=== PATIENT | female | born 1985 | race American Indian/Alaskan Native ===

== ENCOUNTER 2016-07-29 13:14 | Emergency (ER) | payer SELFPAY ==
[2016-07-29 13:42] VITALS: BP 132/80
--- NOTE | 2016-07-29 17:07 | Emergency Department Report ---
Upper Extremity - HPI Chief Complaint: Extremity Injury, Upper Stated Complaint: RT HAND PAIN SWELLING/KNEE Time Seen by Provider: 07/29/16 16:27 Upper Extremity: Right Hand (right thumb and web in between first and second digits), Right Thumb, Right Index Finger Occurred When: >5 Days (5 months) Severity: moderate Symptoms: Yes Pain with Movement, Yes Limited Range of Movement, Yes Numbness, Yes Weakness, Yes Swelling, No Deformity, No Bruising/Ecchymosis, No Laceration or Abrasion Other History: Patient comes into the ER today with complaints of right hand pain since February 2016. Patient states that she went to put her hand on her hip and her thumb overextended. Since that time it has continued to bother her but it has gotten a lot worse in the past week and a half. Patient has not seen any other provider for this injury. Patient does note that it seems to go numb in her thumb as well as first and second fingers from time to time. Patient states it feels swollen between her thumb and second finger. Patient also having complaints of left knee pain for the past month. Patient denies any injury to her knee but states that it feels like it wants to give out frequently and is worse when putting stress on the knee such as getting in and out of a car or going up and down stairs. ED Review of Systems ROS: Stated complaint: RT HAND PAIN SWELLING/KNEE Other details as noted in HPI Constitutional: denies: chills, fever Eyes: denies: eye pain, eye discharge, vision change ENT: denies: ear pain, throat pain Respiratory: denies: cough, shortness of breath, wheezing Cardiovascular: denies: chest pain, palpitations Endocrine: no symptoms reported Gastrointestinal: denies: abdominal pain, nausea, diarrhea Genitourinary: denies: urgency, dysuria, discharge Musculoskeletal: joint swelling, arthralgia, other (right hand pain, left knee pain). denies: back pain Skin: denies: rash, lesions Neurological: denies: headache, weakness, paresthesias Psychiatric: denies: anxiety, depression Hematological/Lymphatic: denies: easy bleeding, easy bruising ED Past Medical Hx - Past Medical History Previous Medical History?: No - Surgical History Additional Surgical History: TUBAL LIGATION - Social History Smoking Status: Current Every Day Smoker Substance Use Type: Alcohol - Medications Home Medications: Home Medications Medication Instructions Recorded Confirmed Last Taken Type Naproxen [Naprosyn TAB] 500 mg PO BID #20 tablet 07/29/16 Unknown Rx traMADol [Ultram] 50 mg PO Q4HR PRN #30 tablet 07/29/16 Unknown Rx Upper Extremity Exam - Exam General: Vital signs noted. No distress. Alert and acting appropriately. Left knee tenderness to joint line anteriorly on medial and lateral aspects. Pain worsened with Joanna's stress testing on left knee. No joint laxity or instability noted. No obvious swelling, redness, warmth noted on exam. Head and Torso: No HEENT Abnormality, No Neck Tenderness, No Chest/Lungs Abnormality, No Abdominal Tenderness, No Back Tenderness Shoulder Exam: Yes Normal Range of Motion in Shoulder, No Shoulder Tenderness, No Clavicle Tenderness, No Shoulder Deformity, No AC Joint Tenderness Arm Exam: No Arm/Humerus Tenderness, No Arm Deformity Elbow: No Elbow Tenderness, No Normal Range of Motion in Elbow, No Elbow Deformity Forearm: No Forearm Tenderness, No Forearm Deformity, No Pain with Pronation, No Pain with Supination Wrist: Yes Normal ROM in Wrist, No Wrist Tenderness, No Wrist Deformity, No Snuffbox Tenderness, No Pain with Axial Thumb Compression Hand: Yes Hand Tenderness (tenderness noted to right thumb and webbing area between the thumb and second digit. Negative Tinel's and Phalen's testing over median nerve), Yes Digit Tenderness, No Hand Deformity, No Normal ROM in Digit(s ), No Digit(s) Deformity, No Tendon Dysfunction CMS Exam: No Broken Skin, No Normal Distal Pulses, No Normal Capillary Refill, No Normal Distal Sensation ED Course Vital Signs 07/29/16 13:36 Temperature 98.9 F Pulse Rate 88 Respiratory 18 Rate Blood Pressure 132/80 O2 Sat by Pulse 100 Oximetry ED Medical Decision Making - Radiology Data Radiology results: image reviewed interpreted by me: No acute bone pathology noted. Slight medial joint space narrowing in comparison to the lateral. - Medical Decision Making Patient is nontoxic and hemodynamically stable. No emergent condition found on examination today. From the history of injury and exam findings of right hand I believe patient has damaged some soft tissue between her right thumb and second finger. Patient placed in thumb spica Velcro splint and I have encouraged her to wear it consistently over the next 3-4 weeks. I'll give patient referral to orthopedics for further evaluation if the symptoms fail to resolve or worsen. X-ray of the left knee reviewed and discussed the patient room. No bone pathology noted. Examination and history I have concern for potential meniscus injury. Patient is to follow-up with orthopedics for evaluation of knee as well. Patient placed in left knee immobilizer in the meantime. She is stable for discharge and and is agreement with treatment plan. Critical care attestation.: If time is entered above; I have spent that time in minutes in the direct care of this critically ill patient, excluding procedure time. ED Disposition Clinical Impression: Right hand pain, Left knee pain Disposition: DISCHARGED TO HOME OR SELFCARE Is pt being admited?: No Does the pt Need Aspirin: No Condition: Stable Instructions: Knee Pain (ED), Tendinitis (ED), Chondroitin Sulfate/Glucosamine Hydrochloride (By mouth) Prescriptions: Naproxen [Naprosyn TAB] 500 mg PO BID #20 tablet traMADol [Ultram] 50 mg PO Q4HR PRN #30 tablet PRN Reason: Pain Referrals: PRIMARY CARE, [Primary Care Provider] - 3-5 Days RUSH YUSUF MD [Staff Physician] - 3-5 Days Time of Disposition: 17:48
--- NOTE | 2016-07-30 07:41 | XRay Report ---
Left knee 2 views: History: Pain. Findings: No bony or articular abnormality. No fracture dislocation or soft tissue calcification. Impression: Essentially negative left knee.
== END 2016-07-29 18:01 | disposition home or self-care (01) ==
LOC: ED 13:14
DX: M79.641 Pain in right hand (principal); M25.562 Pain in left knee; F17.200 Nicotine dependence, unspecified, uncomplicated; Z98.51 Tubal ligation status

== ENCOUNTER 2016-09-24 17:51 | Emergency (ER) | payer SELFPAY ==
[2016-09-24 19:15] LABS: Basophils % (Auto) 0.4 % (0.0-1.8); Eosinophils % (Auto) 2.1 % (0.0-4.3); Hematocrit 44.1 % (30.3-42.9); Hemoglobin 14.1 gm/dl (10.1-14.3); Mean Corpuscular HGB Conc 32 % (30-34); Mean Corpuscular Hemoglobin 27 pg (28-32); Mean Corpuscular Volume 85 fl (79-97); Platelet Count 356 K/mm3 (140-440); Red Blood Count 5.21 M/mm3 (3.65-5.03); Red Cell Distribution Width 18.2 % (13.2-15.2); White Blood Count 7.1 K/mm3 (4.5-11.0)
[2016-09-24 19:26] LABS: INR 1.04 (0.87-1.13); Partial Thromboplastin Time 28.6 Sec. (24.2-36.6)
[2016-09-24 19:43] LABS: Anion Gap 17 mmol/L; BUN/Creatinine Ratio 11.25; Blood Urea Nitrogen 9 mg/dL (7-17); Calcium 8.7 mg/dL (8.4-10.2); Carbon Dioxide 21 mmol/L (22-30); Glucose 89 mg/dL (65-100); Potassium 4.4 mmol/L (3.6-5.0); Sodium 140 mmol/L (137-145)
[2016-09-25] MEDS ORDERED: TYLENOL PO ONE (01:10)
[2016-09-25] MEDS ORDERED: TORADOL IV ONE (03:44)
[2016-09-25] MEDS ORDERED: MORPHINE IV ONE (03:44)
[2016-09-25] MEDS ORDERED: ZOFRAN IV ONE (03:44)
[2016-09-25] MEDS ORDERED: NACL ONE (04:48)
--- NOTE | 2016-09-25 05:10 | Emergency Department Report ---
ED Chest Pain HPI - General Chief Complaint: Chest Pain Stated Complaint: CHEST PAIN/BACK/ARM PAIN Time Seen by Provider: 09/25/16 03:28 Source: patient Mode of arrival: Ambulatory Limitations: No Limitations - History of Present Illness Initial Comments: 31 year old past medical history except tubal ligation presents to the hospital complaints of chest pain, left arm pain, left knee pain and swelling, and right wrist pain and swelling. Symptoms started 6 days ago. Left upper chest wall pain described as sharp, intermittent, worse with movement, coughing, and deep inspiration. Patient also complaining of pain to left shoulder to palpation and movement. Patient of painful left knee pain with swelling that has improved since arrival. Patient also had swelling to right wrist that has also improved. Patient denies history of arthritis or rheumatoid disorder. She does not have a primary care doctor. She denies shortness of breath. Severity scale (0 -10): 10 - Related Data Previous Rx's Medication Instructions Recorded Last Taken Type HYDROcodone/APAP 5-325 [[place] 1 each PO Q6HR PRN #20 tablet 09/25/16 Unknown Rx 5/325] Naproxen [Naprosyn] 500 mg PO BID PRN #30 tablet 09/25/16 Unknown Rx Prednisone [predniSONE 10 mg 10 mg PO .TAPER #1 tab.ds.pk 09/25/16 Unknown Rx (6-Day Pack, 21 Tabs)] Allergies Allergy/AdvReac Type Severity Reaction Status Date / Time No Known Allergies Allergy Unverified 07/29/16 13:42 Heart Score - HEART Score History: Slightly suspicious EKG: Normal Age: < 45 Risk factors: No known risk factors Troponin: < normal limit HEART Score: 0 ED Review of Systems ROS: Stated complaint: CHEST PAIN/BACK/ARM PAIN Other details as noted in HPI Comment: All other systems reviewed and negative Other: Constitutional: No fevers chills or weight loss Eyes: No eye pain visual changes or discharge ENT: No ear pain or throat pain Neck: Denies pain Respiratory: Denies cough wheezing Cardiovascular: Denies palpitations, syncope Endocrine: Denies excessive sweating, intolerance to cold, increased thirst GI: Denies abdominal pain, nausea, vomiting, diarrhea, constipation, melena hematochezia : Denies dysuria, urinary frequency, or urgency Musculoskeletal: as per hpi Skin: Denies rash, lesions, erythema Neurologic: Denies headache, numbness, weakness Psychiatric: Denies suicidal ideation, hallucinations Hematological/lymphatic: Denies easy bruising, lymphadenopathy ED Past Medical Hx - Past Medical History Previous Medical History?: No - Surgical History Additional Surgical History: TUBAL LIGATION - Social History Smoking Status: Current Every Day Smoker Substance Use Type: Alcohol - Medications Home Medications: Home Medications Medication Instructions Recorded Confirmed Last Taken Type HYDROcodone/APAP 5-325 [[place] 1 each PO Q6HR PRN #20 tablet 09/25/16 Unknown Rx 5/325] Naproxen [Naprosyn] 500 mg PO BID PRN #30 tablet 09/25/16 Unknown Rx Prednisone [predniSONE 10 mg 10 mg PO .TAPER #1 tab.ds.pk 09/25/16 Unknown Rx (6-Day Pack, 21 Tabs)] ED Physical Exam - General Limitations: No Limitations - Other Other exam information: General: No limitations, patient is alert in no acute distress Head exam: Atraumatic, normocephalic Eyes exam: Normal appearance, pupils equal reactive to light, extraocular movements intact ENT: Moist mucous membrane, normal oropharynx Neck exam: Normal inspection, full range of motion, no meningismus nontender Respiratory exam: Clear to auscultation bilateral, no wheezes, rales, crackles Cardiovascular: Normal rate and rhythm, normal heart sounds, reproducible chest wall tenderness at one specific area just to the left of the sternal and at the upper chest wall Abdomen: Soft, nondistended, and nontender, with normal bowel sounds, no rebound, or guarding Extremity: Full range of motion of all extremities. Patient has tenderness to left shoulder and pain with movement. Patient also has some mild tenderness pain with movement of left knee. Patient showed me a camera photo for previous left knee swelling and right wrist edema to have both improved. No erythema or warmth to these extremities. No calf edema Back: Normal Inspection, full range of motion, no tenderness Neurologic: Alert, oriented x3, cranial nerves intact, no motor or sensory deficit Psychiatric: normal affect, normal mood Skin: Warm, dry, intactnimal physical exam ED Course Vital Signs 09/24/16 09/25/16 09/25/16 18:08 00:53 03:21 Temperature 98.6 F 96.8 F L Pulse Rate 90 64 60 Respiratory 18 16 Rate Blood Pressure 119/79 144/98 O2 Sat by Pulse 100 98 100 Oximetry 09/25/16 09/25/16 09/25/16 03:30 04:00 04:30 Temperature Pulse Rate 59 L 61 67 Respiratory 26 H 25 H 12 Rate Blood Pressure 126/80 122/79 132/85 O2 Sat by Pulse 100 100 99 Oximetry 09/25/16 05:00 Temperature Pulse Rate 65 Respiratory 22 Rate Blood Pressure 122/74 O2 Sat by Pulse 99 Oximetry - Reevaluation(s) Reevaluation #1: 09/25/16 05:46 Pt treated with toradal, morphine, and decadron. SURY score - Sury Score Age > 65: (0) No Aspirin use within the Past 7 Days: (0) No 3 or more CAD Risk Factors: (0) No 2 or more Angina events in past 24 hrs: (0) No Known CAD with more than 50% Stenosis: (0) No Elevated Cardiac Markers: (0) No ST Deviation Greater than 0.5mm: (0) No SURY Score: 0 ED Medical Decision Making - Lab Data Result diagrams: 09/24/16 18:41 09/24/16 18:41 Lab Results 09/24/16 09/24/16 09/24/16 Range/Units 18:41 18:41 18:41 WBC 7.1 (4.5-11.0) K/mm3 RBC 5.21 H (3.65-5.03) M/mm3 Hgb 14.1 (10.1-14.3) gm/dl Hct 44.1 H (30.3-42.9) % MCV 85 (79-97) fl MCH 27 L (28-32) pg MCHC 32 (30-34) % RDW 18.2 H (13.2-15.2) % Plt Count 356 (140-440) K/mm3 Lymph % (Auto) 35.5 H (13.4-35.0) % Mcdonough % (Auto) 7.8 H (0.0-7.3) % Eos % (Auto) 2.1 (0.0-4.3) % Baso % (Auto) 0.4 (0.0-1.8) % Lymph # 2.5 (1.2-5.4) K/mm3 Mcdonough # 0.5 (0.0-0.8) K/mm3 Eos # 0.1 (0.0-0.4) K/mm3 Baso # 0.0 (0.0-0.1) K/mm3 Seg Neutrophils % 54.2 (40.0-70.0) % Seg Neutrophils # 3.8 (1.8-7.7) K/mm3 PT 13.5 (12.2-14.9) Sec. INR 1.04 (0.87-1.13) APTT 28.6 (24.2-36.6) Sec. D-Dimer (0-234) ng/mlDDU Sodium 140 (137-145) mmol/L Potassium 4.4 (3.6-5.0) mmol/L Chloride 106.0 (98-107) mmol/L Carbon Dioxide 21 L (22-30) mmol/L Anion Gap 17 mmol/L BUN 9 (7-17) mg/dL Creatinine 0.8 (0.7-1.2) mg/dL Estimated GFR > 60 ml/min BUN/Creatinine Ratio 11.25 % Glucose 89 (65-100) mg/dL Calcium 8.7 (8.4-10.2) mg/dL Troponin T < 0.010 (0.00-0.029) ng/mL 09/25/16 09/25/16 Range/Units 01:13 03:45 WBC (4.5-11.0) K/mm3 RBC (3.65-5.03) M/mm3 Hgb (10.1-14.3) gm/dl Hct (30.3-42.9) % MCV (79-97) fl MCH (28-32) pg MCHC (30-34) % RDW (13.2-15.2) % Plt Count (140-440) K/mm3 Lymph % (Auto) (13.4-35.0) % Mcdonough % (Auto) (0.0-7.3) % Eos % (Auto) (0.0-4.3) % Baso % (Auto) (0.0-1.8) % Lymph # (1.2-5.4) K/mm3 Mcdonough # (0.0-0.8) K/mm3 Eos # (0.0-0.4) K/mm3 Baso # (0.0-0.1) K/mm3 Seg Neutrophils % (40.0-70.0) % Seg Neutrophils # (1.8-7.7) K/mm3 PT (12.2-14.9) Sec. INR (0.87-1.13) APTT (24.2-36.6) Sec. D-Dimer 700.85 H (0-234) ng/mlDDU Sodium (137-145) mmol/L Potassium (3.6-5.0) mmol/L Chloride (98-107) mmol/L Carbon Dioxide (22-30) mmol/L Anion Gap mmol/L BUN (7-17) mg/dL Creatinine (0.7-1.2) mg/dL Estimated GFR ml/min BUN/Creatinine Ratio % Glucose (65-100) mg/dL Calcium (8.4-10.2) mg/dL Troponin T < 0.010 (0.00-0.029) ng/mL - EKG Data -: EKG Interpreted by Me (sinus rhythm rate [address] elevation [place]. Possible biatrial enlargement) - EKG Data When compared to previous EKG there are: previous EKG unavailable 09/25/16 05:48 Repeat EKG in the ED on change - Radiology Data Radiology results: report reviewed (CT angiogram: No PE, negative), image reviewed (chest x-ray: No acute findings) - Medical Decision Making Patient has various musculoskeletal areas of pain and intermittent joint swelling and pain. I suspicious for an arthritis condition and patient thinks patient may benefit from additional outpatient workup due to her arthralgias. She will be treated with anti-inflammatory, narcotics, and steroids and follow- up will be encouraged - Differential Diagnosis costochondritis, arthralgias, lupus, rheumatoid arthritis, atypical chest p Critical Care Time: No Critical care attestation.: If time is entered above; I have spent that time in minutes in the direct care of this critically ill patient, excluding procedure time. ED Disposition Clinical Impression: Arthralgia, Costochondritis, acute Disposition: DC-01 TO HOME OR SELFCARE Is pt being admited?: No Does the pt Need Aspirin: No Condition: Stable Instructions: Costochondritis (ED), Arthralgia (ED) Additional Instructions: Take the medication as prescribed. It is very important that you follow-up with a primary care doctor or clinic provided for further investigation as to why your joints intermittently swelling and painful. Prescriptions: HYDROcodone/APAP 5-325 [[place] 5/325] 1 each PO Q6HR PRN #20 tablet PRN Reason: Pain Naproxen [Naprosyn] 500 mg PO BID PRN #30 tablet PRN Reason: Pain Prednisone [predniSONE 10 mg (6-Day Pack, 21 Tabs)] 10 mg PO .TAPER #1 tab.ds.pk Referrals: [facility] [Provider Group] - 3-5 Days NUVIA DOMINGUEZ MD [Staff Physician] - 3-5 Days Time of Disposition: 05:53
--- NOTE | 2016-09-25 05:21 | Cat Scan Report ---
FINAL REPORT PROCEDURE: CT ANGIO CHEST TECHNIQUE: Computerized axial tomographic angiography of the chest and pulmonary arteries was performed after the IV injection of iodinated nonionic contrast. The image data was postprocessed using maximum intensity projection (MIP) and 2-dimensional multiplanar reformatted (MPR) techniques. The examination is specifically tailored to the evaluation of the pulmonary arteries per clinical request. HISTORY: Short of breath 786.09, chest pain 786.50, cp, elevated ddimer COMPARISON: No prior studies are available for comparison. FINDINGS: Heart and pericardium: Normal. Thoracic aorta: Normal. Pulmonary vasculature: Normal. No pulmonary emboli. Lymph nodes: No enlarged thoracic lymph nodes. Lungs: Lungs are clear.. Pleural space: No effusion, thickening, or pneumothorax. Musculoskeletal structures: No significant abnormality. Upper abdominal structures: No significant abnormality. IMPRESSION: There is no pulmonary embolism. There is no thoracic aortic aneurysm or dissection. The lungs are clear and expanded..
[2016-09-25 06:14] VITALS: BP 109/71
--- NOTE | 2016-09-25 09:32 | XRay Report ---
Chest 2 views: History: Chest pain/SOB. Findings: Normal cardiomediastinal silhouette. Trachea is midline. No consolidation, pneumothorax or pleural effusion. Impression: No acute cardiopulmonary findings.
== END 2016-09-25 06:15 | disposition home or self-care (01) ==
LOC: ED 17:51
DX: M94.0 Chondrocostal junction syndrome [Tietze] (principal); M79.1 Myalgia; F17.200 Nicotine dependence, unspecified, uncomplicated
CPT/HCPCS: 36415; 71020; 71275; 80048; 84484; 85025; 85379; 85610; 85730; 93005; 93010; 96374; 96375; 99285; J1885; J2270; J2405; J2930; Q9967

== ENCOUNTER 2017-04-04 16:43 | Emergency (ER) | payer SELFPAY | END 2017-04-04 17:30 | disposition left against medical advice (07) | LOC: ED 16:43 | DX: R06.02 Shortness of breath (principal); Z53.21 Procedure and treatment not carried out due to patient leaving prior to being seen by health care provider ==